=== PATIENT | female | born 1985 | race Caucasian/White ===

== ENCOUNTER 2018-04-12 08:37 | Inpatient (IN) | payer MEDICAID ==
[2018-04-12] MEDS ORDERED: CARBOPROST 250 MCG INJ IM (09:30)
[2018-04-12] MEDS ORDERED: OXYTOCIN 30 UNITS/LR 500 ML IV (09:30)
[2018-04-12] MEDS ORDERED: LIDOCAINE 1% (MPF) 30 ML INJ INJ (09:30)
[2018-04-12] MEDS ORDERED: BUTORPHANOL 2 MG INJ IV (09:30)
[2018-04-12] MEDS ORDERED: MINERAL OIL LIGHT 10 ML VIAL TOP (09:30)
[2018-04-12] MEDS ORDERED: METHYLERGONOVINE 0.2 MG INJ IM (09:30)
[2018-04-12] MEDS ORDERED: MISOPROSTOL 200 MCG TAB PR (09:30)
[2018-04-12] MEDS: LACTATED RINGER'S 1,000 ML IV* ×5 (10:04→20:31)
[2018-04-12 10:36] LABS: ADD MAN DIFF? NO
[2018-04-12 10:42] LABS: WHITE BLOOD COUNT 6.7 10^3/ul (4.8-10.8)
[2018-04-12 10:42] LABS: BASOPHILS % 0.4 % (0.0-2.0); EOSINOPHILS # 0.1 10^3/ul (0.0-0.5); EOSINOPHILS % 0.7 % (0.0-7.0); HEMATOCRIT 35.6 % (37.0-47.0); HEMOGLOBIN 12.2 g/dl (12.0-16.0); LYMPHOCYTES # 2.1 10^3/ul (0.8-2.9); LYMPHOCYTES % 30.6 % (15.0-51.0); MEAN CORPUSCULAR HEMOGLOBIN 32.1 pg (29.0-33.0); MEAN CORPUSCULAR HGB CONC 34.3 g/dl (32.0-37.0); MEAN CORPUSCULAR VOLUME 93.7 fl (82.0-101.0); MONOCYTE # 0.4 10^3/ul (0.3-0.9); MONOCYTES % 5.8 % (0.0-11.0); NEUTROPHIL # 4.2 10^3/ul (1.6-7.5); NEUTROPHILS % 62.4 % (39.0-77.0); PLATELET COUNT 319 10^3/UL (140-415); RED CELL DISTRIBUTION WIDTH 13.2 % (11.5-14.5)
[2018-04-12 11:25] LABS: INR 0.89; PROTIME 12.1 Sec (11.9-14.9); PT RATIO 0.9
[2018-04-12 11:26] LABS: PARTIAL THROMBOPLASTIN TIME 25.3 Sec (23.0-35.0)
[2018-04-12] MEDS: OXYTOCIN 30 UNITS/LR 500 ML IV ×3 (13:26→22:39)
[2018-04-12] MEDS ORDERED: FENTAnyl 2MCG/ML-ROPIV 0.2% 100 ML (14:22)
[2018-04-12] MEDS ORDERED: NALOXONE (0.4 MG/ML) INJ IV (14:30)
[2018-04-12] MEDS ORDERED: FENTAnyl 2MCG/ML-ROPIV 0.2% 100 ML BAG EPI (14:30)
[2018-04-12 16:17] LABS: RAPID PLASMA REAGIN NONREACTIVE (NR)
[2018-04-12] MEDS: MINERAL OIL LIGHT 10 ML VIAL TOP (21:48)
[2018-04-13] MEDS: IBUPROFEN 600 MG TAB PO ×4 (00:27→18:00)
[2018-04-13] MEDS: LACTATED RINGER'S 1,000 ML IV* ×2 (00:33→15:45)
[2018-04-13] MEDS ORDERED: METHYLERGONOVINE 0.2 MG INJ IM (01:00)
[2018-04-13] MEDS ORDERED: ZOLPIDEM 5 MG TAB PO (01:00)
[2018-04-13] MEDS ORDERED: DIBUCAINE 1% 30 GM OINT PR (01:00)
[2018-04-13] MEDS ORDERED: CARBOPROST 250 MCG INJ IM (01:00)
[2018-04-13] MEDS ORDERED: MISOPROSTOL 200 MCG TAB PR (01:00)
[2018-04-13] MEDS: OXYTOCIN 30 UNITS/LR 500 ML IV (02:44)
[2018-04-13] MEDS: WITCH HAZEL/GLYCERIN PAD PR (03:07)
[2018-04-13] MEDS: BENZOCAINE 20% 56 ML SPRAY TOP (03:07)
[2018-04-13] MEDS: LANOLIN 7 GM TUBE TOP (03:08)
[2018-04-13] MEDS: CEPHALEXIN 500 MG CAP PO ×3 (04:07→18:02)
[2018-04-13 08:38] LABS: WHITE BLOOD COUNT 22.4 10^3/ul (4.8-10.8)
[2018-04-13 08:38] LABS: HEMATOCRIT 32.2 % (37.0-47.0); HEMOGLOBIN 11.2 g/dl (12.0-16.0); MEAN CORPUSCULAR HEMOGLOBIN 32.7 pg (29.0-33.0); MEAN CORPUSCULAR HGB CONC 34.8 g/dl (32.0-37.0); MEAN CORPUSCULAR VOLUME 93.9 fl (82.0-101.0); MEAN PLATELET VOLUME 11.3 fl (7.4-10.4); PLATELET COUNT 269 10^3/UL (140-415); RED BLOOD COUNT 3.43 10^6/ul (4.20-5.40)
[2018-04-13 08:52] LABS: ADD MAN DIFF? YES; POSITIVE DIFF @See below
[2018-04-13] MEDS: MAGNESIUM HYDROXIDE 30ML CUP PO ×2 (09:00→20:10)
[2018-04-13] MEDS: SENNA/DOCUSATE NA (8.6MG/50MG) TAB PO ×2 (09:00→20:10)
[2018-04-13 10:37] LABS: ANISOCYTOSIS 1+ (0-0); BAND NEUTROPHILS % (M) 18 % (0-4); GIANT THROMBO% (M) 1 % (0-0); LYMPHOCYTES #M 2.6 10^3/ul (0.8-2.9); LYMPHOCYTES % (M) 12 % (15-51); MONOCYTE #M 1.3 10^3/ul (0.3-0.9); MONOCYTES % (M) 6 % (0-11); PLATELET ESTIMATE NORMAL; POIKILOCYTOSIS 1+ (0-0); POLYCHROMASIA 1+ (0-0); SEG NEUT #M 15.2 10^3/ul (1.6-7.5); SEGMENTED NEUTROPHILS (M) % 64 % (39-77); SMUDGE%M 6 % (0-0)
[2018-04-13] MEDS ORDERED: MIDAZOLAM 1 MG/ML 2 ML INJ ×2 (13:13→13:41)
[2018-04-13] MEDS ORDERED: FENTAnyl 50 MCG/ML VIAL (13:13)
[2018-04-13] MEDS ORDERED: CEFAZOLIN 1 GM INJ (13:43)
[2018-04-13] MEDS: BUPIVACAINE 0.25%/EPI (MDV) 50 ML VIAL INJ (14:29)
[2018-04-13] MEDS: LACTATED RINGER'S 1,000 ML IV (14:29)
[2018-04-13] MEDS ORDERED: FENTAnyl 50 MCG/ML VIAL IV ×3 (14:30)
[2018-04-13] MEDS ORDERED: MEPERIDINE 25 MG INJ IV (14:30)
[2018-04-13] MEDS ORDERED: DIPHENHYDRAMINE 50 MG INJ IV (14:30)
[2018-04-13] MEDS ORDERED: hydrALAzine 20 MG INJ IV (14:30)
[2018-04-13] MEDS ORDERED: LABETALOL HCL 20MG INJ IV (14:30)
[2018-04-13] MEDS ORDERED: OXYCODONE/ACETAMINOPHEN (5/325) TAB PO ×2 (14:30)
[2018-04-13] MEDS ORDERED: HYDROmorphONE 1 MG/5 ML IV SYRINGE IV ×3 (14:30)
[2018-04-13] MEDS ORDERED: KETOROLAC 30 MG INJ IV (14:30)
[2018-04-13] MEDS ORDERED: ALBUTEROL 0.083% (NEB) 2.5 MG/3 ML AMP HHN (14:30)
[2018-04-13] MEDS ORDERED: ONDANSETRON 4 MG INJ IV (14:30)
[2018-04-13] MEDS ORDERED: EPHEDrine SULFATE 50 MG/5 ML SYG IV (14:30)
[2018-04-13] MEDS: KETOROLAC 60 MG INJ IM (14:59)
[2018-04-13] MEDS ORDERED: ACETAMINOPHEN 325 MG TAB PO (15:00)
[2018-04-13] MEDS: BUTORPHANOL 2 MG INJ IM (15:00)
[2018-04-13 16:20] LABS: ADD UMIC YES; UR ASCORBIC ACID NEGATIVE (NEGATIVE); UR BILIRUBIN (Dip) NEGATIVE (NEGATIVE); UR BLOOD (Dip) 2+ mg/dL (NEGATIVE); UR CLARITY CLEAR (CLEAR); UR COLOR YELLOW (YELLOW); UR GLUCOSE (Dip) NEGATIVE (NEGATIVE); UR KETONES (Dip) NEGATIVE (NEGATIVE); UR LEUKOCYTE ESTERASE (Dip) NEGATIVE Leu/ul (NEGATIVE); UR NITRITE (Dip) NEGATIVE (NEGATIVE); UR RBC 16 /HPF (0-5); UR SPECIFIC GRAVITY (Dip) 1.011 (1.003-1.030); UR SQUAMOUS EPITHELIAL CELL FEW /HPF (FEW); UR TOTAL PROTEIN (Dip) NEGATIVE (NEGATIVE); UR UROBILINOGEN (Dip) NEGATIVE (NEGATIVE); UR WBC 4 /HPF (0-5)
[2018-04-13] MEDS: HYDROCODONE/APAP (5/325) TAB PO (22:54)
[2018-04-14] MEDS: IBUPROFEN 600 MG TAB PO ×3 (00:14→11:43)
[2018-04-14] MEDS: CEPHALEXIN 500 MG CAP PO ×3 (00:14→11:43)
[2018-04-14] MEDS: LACTATED RINGER'S 1,000 ML IV ×2 (00:29→10:29)
[2018-04-14] MEDS ORDERED: VITAMIN A & D 5 GM OINT PACKET TOP (04:49)
[2018-04-14 08:45] LABS: ADD MAN DIFF? NO
[2018-04-14 08:49] LABS: WHITE BLOOD COUNT 14.2 10^3/ul (4.8-10.8)
[2018-04-14 08:49] LABS: BASOPHIL # 0.1 10^3/ul (0.0-0.1); BASOPHILS % 0.4 % (0.0-2.0); EOSINOPHILS # 0.1 10^3/ul (0.0-0.5); EOSINOPHILS % 0.6 % (0.0-7.0); HEMATOCRIT 30.2 % (37.0-47.0); HEMOGLOBIN 10.3 g/dl (12.0-16.0); LYMPHOCYTES # 2.3 10^3/ul (0.8-2.9); LYMPHOCYTES % 16.2 % (15.0-51.0); MEAN CORPUSCULAR HEMOGLOBIN 32.3 pg (29.0-33.0); MEAN CORPUSCULAR HGB CONC 34.1 g/dl (32.0-37.0); MEAN CORPUSCULAR VOLUME 94.7 fl (82.0-101.0); MEAN PLATELET VOLUME 10.6 fl (7.4-10.4); MONOCYTE # 0.7 10^3/ul (0.3-0.9); MONOCYTES % 4.7 % (0.0-11.0); NEUTROPHILS % 77.5 % (39.0-77.0); PLATELET COUNT 264 10^3/UL (140-415); RED BLOOD COUNT 3.19 10^6/ul (4.20-5.40); RED CELL DISTRIBUTION WIDTH 13.4 % (11.5-14.5)
[2018-04-14] MEDS: SENNA/DOCUSATE NA (8.6MG/50MG) TAB PO (09:47)
[2018-04-14] MEDS: MAGNESIUM HYDROXIDE 30ML CUP PO (09:47)
[2018-04-14] MEDS: MEASLES,MUMPS,RUBELLA VACCINE INJ SC* (09:48)
[2018-04-14] MEDS: HYDROCODONE/APAP (5/325) TAB PO (09:52)
[2018-04-14] MEDS: VARICELLA VACCINE LIVE/PF 1,350 UNIT/0.5 ML ML SC* (09:54)
[2018-04-14 10:01] LABS: HEPATITIS B SURFACE ANTIBODY NEGATIVE (NEGATIVE)
[2018-04-14] MEDS: DIPHTH/TET/ACEL PERTUSS (ADULT) 0.5 ML VIAL IM* (11:11)
== END 2018-04-14 16:31 | disposition home or self-care (01) | DRG 798 ==
LOC: L-D 08:37 → PP1 04-13 00:34 → L-D 10:18
PROVIDERS: Obstetrics & Gynecology
PROC: 10E0XZZ Delivery of Products of Conception, External Approach (ICD-10-PCS; 2018-04-12 10:30)
PROC: 3E033VJ Introduction of Other Hormone into Peripheral Vein, Percutaneous Approach (ICD-10-PCS; 2018-04-12 10:30)
PROC: 0HQ9XZZ Repair Perineum Skin, External Approach (ICD-10-PCS; principal; 2018-04-13 11:30)
PROC: 0UB70ZZ Excision of Bilateral Fallopian Tubes, Open Approach (ICD-10-PCS; 2018-04-13 11:30)
DX: O70.0 First degree perineal laceration during delivery (principal); Z37.0 Single live birth; Z3A.40 40 weeks gestation of pregnancy; Z30.2 Encounter for sterilization
CPT/HCPCS: 62319; 76815; 81001; 85025; 85610; 85730; 86592; 86706; 86850; 86900; 86901; 87086; 88302; 90715; 90716; 99464